=== PATIENT | female | born 1950 | race Caucasian/White ===

== ENCOUNTER → 2016-12-31 | Outpatient (CLI) | payer MEDICARE, OTHER ==
[2016-12-31 12:56] LABS: CH 29.9; CHCM 32.3; HCT 38.3 % (34.0-46.0); HDW 2.56; HGB 12.2 gm/dL (11.4-16.0); MCH 29.6 pg (25.0-35.0); MCHC 31.8 g/dL (31.0-37.0); MCV 93.1 fL (80.0-100.0); Mean Platelet Volume 6.9; RBC 4.12 m/uL (3.80-5.40); RDW 13.2 % (11.5-15.5); WBC 7.9 k/uL (3.8-10.6)
[2016-12-31 13:07] LABS: ALT 35 U/L (9-52); AST 23 U/L (14-36); Alkaline Phosphatase 68 U/L (38-126); Anion Gap 10 mmol/L; Blood Urea Nitrogen 10 mg/dL (7-17); Calcium 9.6 mg/dL (8.4-10.2); Carbon Dioxide 27 mmol/L (22-30); Chloride 106 mmol/L (98-107); Cholesterol 162 mg/dL (<200); Glucose 92 mg/dL (74-99); HDL Cholesterol 66 mg/dL (40-60); Non-African American GFR(MDRD) >60 (>60 ml/min/1.73 sqM); Potassium 4.5 mmol/L (3.5-5.1); Sodium 143 mmol/L (137-145); Total Bilirubin 0.3 mg/dL (0.2-1.3); Total Protein 7.3 g/dL (6.3-8.2)
== END | disposition home or self-care (01) ==
LOC: LABWHC1 12:14
PROVIDERS: ATTEND Family Medicine
DX: R35.0 Frequency of micturition (principal); I10 Essential (primary) hypertension
CPT/HCPCS: 36415; 80053; 80061; 83036; 84443; 85027

== ENCOUNTER → 2018-07-15 | Outpatient (CLI) | payer MEDICARE, OTHER ==
[2018-07-15 14:27] LABS: Blood Urea Nitrogen 16 mg/dL (7-17)
--- NOTE | 2018-07-15 15:16 | CT ---
EXAMINATION TYPE: CT soft tissue neck w con DATE OF EXAM: 07/15/2018 2:50 PM COMPARISON: None HISTORY: Left mandilbular mass CT DLP: 425.6 mGycm Automated exposure control for dose reduction was used. CONTRAST: CT scan of the neck is performed following with IV Contrast, patient injected with 100 mL of Isovue 3 00. Axial images are obtained, coronal and sagittal reformatted images are reviewed. FINDINGS: Lung apices are clear. Atherosclerotic change of the aorta and vasculature noted. Left thyroid gland is enlarged relative to the right nerve subcentimeter bilateral thyroid nodules. The left submandibular and right submandibular glands have a normal appearance. However, there are mu ltiple lymph nodes seen in the submandibular region on the left the largest of which measures 1 cm in short axis. Trachea demonstrates a normal appearance. Vocal cords have a normal appearance. Oropharynx and nasoph arynx symmetric. Base the tongue appears symmetric. Changes of mild chronic sinusitis noted. Parotid glands have a normal appearance. Hypertrophic and degenerative change of the vertebral column noted with severe changes involving the lower cervical spine. Slight anterolisthesis of C2 on C3 noted with multilevel facet arthropathy. IMPRESSION: 1. The submandibular gland has a normal appearance. However, there are multiple lymph nodes seen in t he region the largest measuring short axis of 1 cm. 2. Left thyroid gland enlargement with subcentimeter bilateral thyroid nodules.
== END ==
LOC: RADCTMAIN 13:50
PROVIDERS: ATTEND Otolaryngology
DX: R22.1 Localized swelling, mass and lump, neck (principal)
CPT/HCPCS: 82565; 84520; 70491; 36415; Q9967

== ENCOUNTER → 2018-08-30 | Outpatient (CLI) | payer MEDICARE, OTHER ==
--- NOTE | 2018-08-30 13:40 | US ---
EXAMINATION TYPE: US thyroid st tissue head/neck DATE OF EXAM: 08/30/2018 COMPARISON: NONE CLINICAL HISTORY: E04.1 Thyroid nodule, R59.9 Enlarged lymph nodes. GLAND SIZE: Right Lobe: 4.8 x 1.7 x 1.0 cm Overall Parenchyma: heterogenous Left Lobe: 4.9 x 2.0 x 2.8 cm Overall Parenchyma: Heterogenous Isthmus Thickness: 0.4 cm NODULES RIGHT: # of nodules measured on right: 1 1. 0.7 x 0.5 x 0.6cm isoechoic solid nodule at the mid pole with well-defined margins. This nodule is wider than tall and shows no intranodular vascularity. *No prior LEFT: # of nodules measured on left: 2 1. 3.1 X 1.2 x 1.5 cm hypoechoic solid nodule at the mid pole with well-defined margins. This nodu le is taller than wide and shows intranodular vascularity. No prior 2. 1.1 X 0.6 x 1.1 cm hypoechoic solid nodule at the upper pole with well-defined margins. This nod ule is wider than tall and shows intranodular vascularity. No prior ISTHMUS: # of nodules measured in the isthmus: 0 Bilateral neck scanned, multiple lymph nodes noted on left largest measuring 1.5 x 0.8 x 1.3cm IMPRESSION: 3.1 cm complex solid left thyroid nodule for which fine-needle aspiration is recommended. Additionall y there are multiple prominent cervical lymph nodes on the left. The
[2018-08-30 14:27] LABS: T4, Free (Free Thyroxine) 1.1 ng/dL (0.78-2.19)
== END | disposition home or self-care (01) ==
LOC: RADUSWWP 12:45
PROVIDERS: ATTEND Otolaryngology
DX: E04.1 Nontoxic single thyroid nodule (principal)
CPT/HCPCS: 76536; 84439; 84443; 86376

== ENCOUNTER 2018-09-16 12:36 | Day surgery (SDC) | payer MEDICARE, OTHER ==
--- NOTE | 2018-09-16 13:58 | US ---
ULTRASOUND GUIDED FNA THYROID BIOPSY: CLINICAL HISTORY: Left thyroid nodules FINDINGS: The procedure was explained to the patient. The risks, complications, benefits and alternatives were discussed and any questions were answered. Informed consent was obtained. Patient was placed supin e on the ultrasound table and prepped and draped in the usual sterile fashion. Utilizing a 25 gauge needle, five passes were made into the large left thyroid nodule measuring 3.1 cm.. Patient was stable throughout the procedure. Pathology is pending. All elements of maximal barrier technique were utilized. IMPRESSION: 1. Successful ultrasound guided FNA thyroid biopsy. 2. The 1.1 cm left thyroid nodule was not seen on today's exam with certainty and therefore cannot be biopsied.
[2018-09-16 14:04] VITALS: RESP 16; TEMP 98.1
[2018-09-16 14:06] VITALS: BP 153/79; PULSE 91
== END 2018-09-16 14:00 | disposition home or self-care (01) ==
LOC: RADPROMAIN 12:36
PROVIDERS: ATTEND Otolaryngology
DX: E04.1 Nontoxic single thyroid nodule (principal)
CPT/HCPCS: 10005; 88173; 88305

== ENCOUNTER → 2019-07-22 | Outpatient (CLI) | payer MEDICARE, OTHER ==
[2019-07-22 10:56] LABS: HGB 13.5 gm/dL (11.4-16.0); MCH 29.9 pg (25.0-35.0); MCV 90.6 fL (80.0-100.0); Mean Platelet Volume 7.7; Platelet Count 366 k/uL (150-450); RBC 4.52 m/uL (3.80-5.40); RDW 13.1 % (11.5-15.5); WBC 7.4 k/uL (3.8-10.6)
[2019-07-22 10:58] LABS: Appearance,Urine Clear (Clear); Bacteria,Urine Moderate /hpf; Bilirubin,Urine Negative (Negative); Blood,Urine Negative (Negative); Color,Urine Light Yellow; Glucose,Urine (UA) Negative (Negative); Ketones,Urine Negative (Negative); Leukocyte Esterase,Urine Small (Negative); Mucus,Urine Rare /hpf; Nitrite,Urine Positive (Negative); Protein,Urine Negative (Negative); RBC,Urine 1 /hpf (0-5); Specific Gravity,Urine 1.006 (1.001-1.035); Squamous Epithelial Cell,Urine 1 /hpf (0-4); Urobilinogen,Urine <2.0 mg/dL (<2.0); WBC,Urine 8 /hpf (0-5)
[2019-07-22 15:36] LABS: African American GFR (CKD) 102.5 (60.0-200.0); Albumin 4.6 g/dL (3.80-4.90); Albumin/Globulin Ratio 1.77 (1.60-3.17); Anion Gap 9.3 mmol/L (4.00-12.00); BUN/Creat Ratio 24.29 Ratio (12.00-20.00); Calcium 9.9 mg/dL (8.7-10.3); Carbon Dioxide 23.7 mmol/L (21.6-31.8); Chol/HDL Ratio 2.67; Globulin 2.6 g/dL (1.6-3.3); LDL Cholesterol,Calculated 59.2 mg/dL (0.0-131.0); Non-African American GFR(CKD) 88.4 (60.0-200.0); Potassium 3.9 mmol/L (3.5-5.5); Total Bilirubin 0.4 mg/dL (0.2-1.2); Total Protein 7.2 g/dL (6.2-8.2); VLDL Calculation 40.8 mg/dL (5.00-40.00)
[2019-07-22 15:44] LABS: T4, Free (Free Thyroxine) 1.2 ng/dL (0.80-1.80)
[2019-07-22 17:51] LABS: Hemoglobin A1C 5.6 % (4.0-6.0)
== END | disposition home or self-care (01) ==
LOC: LABWHC1 10:10
PROVIDERS: ATTEND Family Medicine
DX: N39.0 Urinary tract infection, site not specified (principal); I10 Essential (primary) hypertension; E78.5 Hyperlipidemia, unspecified; E04.9 Nontoxic goiter, unspecified; Z51.81 Encounter for therapeutic drug level monitoring; Z79.899 Other long term (current) drug therapy
CPT/HCPCS: 36415; 80053; 80061; 81001; 82550; 83036; 84439; 84443; 85027; 87077; 87086; 87186

== ENCOUNTER → 2019-11-09 | Outpatient (CLI) | payer MEDICARE, OTHER ==
--- NOTE | 2019-11-09 11:41 | US ---
EXAMINATION TYPE: US venous doppler duplex LE RT DATE OF EXAM: 11/09/2019 10:56 AM COMPARISON: NONE CLINICAL HISTORY: R22.41 Localized swelling, mass and lump, right lo. SIDE PERFORMED: Right TECHNIQUE: The lower extremity deep venous system is examined utilizing real time linear array sonog fang with graded compression, doppler sonography and color-flow sonography. VESSELS IMAGED: External Iliac Vein (EIV) Common Femoral Vein Deep Femoral Vein Greater Saphenous Vein * Femoral Vein Popliteal Vein Small Saphenous Vein * Proximal Calf Veins (* superficial vessels) Right Leg: Negative for DVT IMPRESSION: No evidence for DVT at this time.
== END | disposition home or self-care (01) ==
LOC: RADUSWWP 10:55
PROVIDERS: ATTEND Family Medicine
DX: R22.41 Localized swelling, mass and lump, right lower limb (principal)

== ENCOUNTER → 2019-11-28 | Outpatient (CLI) | payer MEDICARE, OTHER ==
--- NOTE | 2019-11-29 16:14 | US ---
EXAMINATION TYPE: US kidneys/renal and bladder DATE OF EXAM: 11/28/2019 COMPARISON: NONE CLINICAL HISTORY: Z87.440 PERSONAL HX UTIS. Pt states h/o recurrent UTI's EXAM MEASUREMENTS: Right Kidney: 10.5 x 5.1 x 5.5 cm Left Kidney: 10.7 x 5.1 x 4.5 cm Right Kidney: Cyst lower pole= 2.9 x 2.2 x 3.1 cm/ Cyst upper pole= 3.7 x 2.5 x 3.1 cm Left Kidney: Cyst lower pole= 1.2 x 0.9 x 1.1 cm/ Possible small isoechoic solid lesion mid anterior= 0.8 x 0.7 x 0.9 cm Bladder: wnl Bilateral Jets seen: Yes Incidental finding Gallstones IMPRESSION: 1. Bilateral renal cysts. 2. Solid lesion mid anterior left kidney. CT abdomen contrast recommended for additional evaluation. 3. Cholelithiasis
== END | disposition home or self-care (01) ==
LOC: RADUSWWP 13:25
PROVIDERS: ATTEND Family Medicine
DX: Z09 Encounter for follow-up examination after completed treatment for conditions other than malignant neoplasm (principal); N28.1 Cyst of kidney, acquired; N28.9 Disorder of kidney and ureter, unspecified; K80.20 Calculus of gallbladder without cholecystitis without obstruction; Z87.440 Personal history of urinary (tract) infections
CPT/HCPCS: 76770

== ENCOUNTER → 2019-12-12 | Outpatient (CLI) | payer MEDICARE, OTHER ==
--- NOTE | 2019-12-13 08:10 | CT ---
EXAMINATION TYPE: CT abdomen pelvis wo con DATE OF EXAM: 12/12/2019 COMPARISON: None INDICATION: Left kidney lesion. Patient having no complaints at time of CT. DLP: 438.8 mGycm, Automated exposure control for dose reduction was used. CONTRAST: 0 mL of Isovue 300. Study performed without Oral Contrast TECHNIQUE: Axial images were obtained from above the diaphragm to the pubic rami in the axial plane a t 5 mm thick sections. Reconstructed images are reviewed on the computer in the coronal plane. FINDINGS: Limited CT sections are obtained the lung bases. The lung bases are clear. CT ABDOMEN: Liver: Normal Spleen: Normal Pancreas: Normal Adrenal glands: The adrenal glands are normal. Gallbladder: Cholelithiasis Kidneys: No masses are evident. No hydronephrosis is present. There is a 2.7 cm cyst superior pole right kidney measuring 8 Hounsfield units. There is an anterior inferior pole 2.4 cm cyst measuring 4 Hounsfield units right kidney. There is a 0.4 cm calcification inferior pole left kidney. Aorta: Vascular calcification is within the aorta. Inferior vena cava: Normal. CT PELVIS: Loops of bowel within the abdomen and pelvis are normal. There are scattered diverticuli within t he colon. No acute diverticulitis is evident. Appendix: Not identified. No inflammatory changes or dilated tubular structures are evident. Urinary bladder: Normal. Genitourinary structures: Uterus and ovaries are not identified. Osseous structures: No suspicious lytic or sclerotic lesions. IMPRESSIONS: 1. Renal cysts. 2. Cholelithiasis. 3. Nonobstructing inferior pole left renal stone
== END | disposition home or self-care (01) ==
LOC: RADCTMAIN 16:53
PROVIDERS: ATTEND Family Medicine
DX: N28.1 Cyst of kidney, acquired (principal); K80.20 Calculus of gallbladder without cholecystitis without obstruction; N20.0 Calculus of kidney
CPT/HCPCS: 74176

== ENCOUNTER → 2019-12-28 | Outpatient (CLI) | payer MEDICARE, OTHER ==
[2019-12-28 12:37] LABS: African American GFR (CKD) >90 (>60 ml/min/1.73 sqM); Blood Urea Nitrogen 13 mg/dL (7-17); Non-African American GFR(CKD) 90 (>60 ml/min/1.73 sqM)
--- NOTE | 2019-12-28 15:24 | CT ---
EXAMINATION TYPE: CT abdomen wo/w con DATE OF EXAM: 12/28/2019 HISTORY: renal mass CT DLP: 911.4mGycm Automated Exposure Control for Dose Reduction was Utilized. CONTRAST: CT scan of the abdomen is performed with oral and without and with IV Contrast, patient injected with 100 mL of Isovue 300. COMPARISON: Prior CT December 12, 2019. Prior ultrasound January 28, 2020 FINDINGS: LUNG BASES: Scattered small nodules throughout the visualized lung bases including largest measured 5 mm posterior right basilar nodule axial image 8 and largest 7 x 5 mm central left basilar nodule axi al image 11. In retrospect these were present on recent CT. Stable trace pericardial effusion anterio r-inferior aspect LIVER/GB: Multiple small calcified dependent gallstones redemonstrated. PANCREAS: No significant abnormality is seen. SPLEEN: No significant abnormality is seen. ADRENALS: No significant abnormality is seen. KIDNEYS: Noncontrast images redemonstrate suspected 1 to 2 mm punctate nonobstructing calculus lower pole level right kidney coronal image 49. There is a 3-4 mm nonobstructing calculus anteriorly lower pole level left kidney axial image 36 redemonstrated. Postcontrast images show symmetric cortical med ullary uptake and excretion without hydronephrosis seen bilaterally. Persistent thin-walled 3.3 cm pa rtially exophytic cyst posteriorly upper pole level right kidney. Persistent partially exophytic 3.0 cm thin-walled cyst anteriorly mid to lower pole of the right kidney. There is 1.0 cm thin-walled cys t left kidney lower pole level seen best on axial image 33 series 8. There is more central 1.1 cm thi n-walled cyst axial image 29 likely corresponding to recent ultrasound abnormality. No concerning obed id or cystic renal mass in either kidney. BOWEL: Oral contrast does not reach terminal ileum level. No suspicious small or large bowel dilatati on is noted.. Scattered diverticula in the left colon are redemonstrated. LYMPH NODES: No greater than 1cm abdominal lymph nodes are appreciated. OSSEOUS STRUCTURES: Transitional type L6 vertebra. Levoconvex scoliosis centered at L2-L3 level with severe disc space narrowing. Grade 1 retrolisthesis L2 on L3. Grade 1 anterolisthesis L5 on transitio nal type L6 vertebra with moderate disc space narrowing and vacuum disc phenomenon. Nonspecific round lucent subcentimeter lesion in superior L1 vertebra coronal image 69 for reference series 13 is rede monstrated. OTHER: Mild apical scarring change of the abdominal aorta. IMPRESSION: No concerning solid or cystic renal mass in either kidney on this study.
== END | disposition home or self-care (01) ==
LOC: RADCTMAIN 11:46
PROVIDERS: ATTEND Urology
DX: R93.422 Abnormal radiologic findings on diagnostic imaging of left kidney (principal); Z88.0 Allergy status to penicillin; Z88.2 Allergy status to sulfonamides
CPT/HCPCS: 82565; 84520; 74170; 36415; Q9967

== ENCOUNTER → 2024-06-22 | Outpatient (CLI) | payer MEDICARE ==
--- NOTE | 2024-06-22 10:25 | CT ---
EXAMINATION TYPE: CT lumbar spine wo con CT DLP: 424.00 mGycm, Automated exposure control for dose reduction was used. DATE OF EXAM: 06/22/2024 10:06 AM COMPARISON: CT abdomen 12/28/2019, CT abdomen and pelvis 12/12/2019. 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 Soft tissue and bone windows in coronal and sagittal planes were obtained and reviewed. Contrast used: none. Oral contrast used: none. FINDINGS: Alignment: There are 5 lumbar type vertebral bodies. Levoscoliotic curvature of the lumbar spine with apex at L2-L3. Grade 1 anterolisthesis of L4 on L5. Mild retrolisthesis of L2 on L3 and L1 on L2. Bone: No evidence of fracture is identified. Multilevel anterior osteophytosis with endplate scleros is. Discs: Multilevel disc space narrowing with vacuum disc disease. T12-L1: No spinal canal or neural foraminal stenosis is identified. L1-L2: No significant central canal stenosis. Mild right neuroforaminal stenosis. The left neural for amen is patent. L2-L3: Broad-based disc bulge resulting in moderate central canal stenosis. Mild left and moderate ri ght neural foraminal stenosis. L3-L4: Broad-based disc bulge resulting in [id number] central canal stenosis. Bilateral facet a rthropathy. Mild to moderate bilateral neuroforaminal stenosis. L4-L5: Grade 1 anterolisthesis with uncovering of the disc. Broad-based disc bulge with minimal effac ement of the anterior thecal sac. This extends into the left foraminal zone with calcification. No si gnificant central canal stenosis. Bilateral facet arthropathy. Mild right and lyqtfpka-[id number] left neural foraminal stenosis. L5-S1: No spinal canal or neural foraminal stenosis is identified. Other: Stable right lower lobe 5 mm pulmonary nodule. Stable left lower lobe 6 mm pulmonary nodule. S mall hiatal hernia. Atherosclerotic calcification of the aorta and its branches. Couple right renal c yst the largest in the superior pole measuring up to 4.7 cm. No follow-up recommended. Nonobstructive couple of right renal calculi measuring up to 2 mm. IMPRESSION: 1. No evidence for spinal fracture. 2. Moderate multilevel degenerative disc disease and facet arthropathy as described above. 3. Levoconvex curvature of the lumbar spine with apex at L2-L3. Grade 1 anterolisthesis of L4 on L5. Mild retrolisthesis of L2 on L3 and L1 on L2. 4. Stable bilateral lower lobe pulmonary nodules dating back to 2019 and considered benign. No follow -up recommended. [facility], , 06/22/2024 10:22 AM
== END | disposition home or self-care (01) ==
LOC: RADCTMAIN 09:34
PROVIDERS: ATTEND Psychiatry & Neurology Neurology
DX: M47.816 Spondylosis without myelopathy or radiculopathy, lumbar region (principal); M43.16 Spondylolisthesis, lumbar region; M51.360 Other intervertebral disc degeneration, lumbar region with discogenic back pain only; R91.8 Other nonspecific abnormal finding of lung field; M99.73 Connective tissue and disc stenosis of intervertebral foramina of lumbar region; N20.0 Calculus of kidney; M43.8X6 Other specified deforming dorsopathies, lumbar region
CPT/HCPCS: 72131